=== PATIENT | female | born 1935 | race Caucasian/White ===

== ENCOUNTER 2016-11-02 11:36 | Emergency (ER) | payer MEDICARE, OTHER ==
[~2016-11-02 11:36] MED LIST: CAPT50TA3 PO; CHOL50009 PO; DEXT1DRO6 BOTH EYES; DOCU-144 PO; DOXE25CA43 PO; DULO60CA6 PO; FAMO20TA18 PO; HYDR-762 PO; IBUP200C11 PO; INSU100V14 SC; LANT3I SC; LAS20 PO; LIDO700A6 TD; LYR75 PO; METF500T PO; METH500T PO; MULT-860 PO; MUPI15CR9 TOP; POTA10TA97 PO; SMV40T PO; TRAM50TA2 PO; ZOLP5TAB PO; [UNRECOGNIZED DRUG - CODE] TOP
[2016-11-02] MEDS ORDERED: SOD CHLORIDE 0.9% 1,000 ML IV STA (11:48)
[2016-11-02] MEDS ORDERED: ONDANSETRON 4 MG INJ IV STA (11:48)
[2016-11-02] MEDS ORDERED: morphine 2 MG INJ IV STA (11:48)
[2016-11-02] MEDS ORDERED: HYDR-902 PO (12:41)
[2016-11-02] MEDS ORDERED: ZOLP10TA PO (12:42)
[2016-11-02] MEDS ORDERED: LANT3I SC (12:42)
[2016-11-02 12:43] LABS: ADD SCAN DIFF NO
[2016-11-02] MEDS ORDERED: NUT.237L21 PO (12:43)
[2016-11-02] MEDS ORDERED: GABA100C14 PO (12:44)
[2016-11-02] MEDS ORDERED: POTA10TA37 PO (12:45)
[2016-11-02] MEDS ORDERED: DICL100G37 TOP (12:45)
[2016-11-02] MEDS ORDERED: CRAN500C5 PO (12:46)
[2016-11-02] MEDS ORDERED: CHOL100062 PO (12:46)
[2016-11-02] MEDS ORDERED: IBUP400T22 PO (12:47)
[2016-11-02] MEDS ORDERED: DESO15CR9 TOP (12:48)
[2016-11-02] MEDS ORDERED: CELE200C PO (12:49)
[2016-11-02] MEDS ORDERED: ALBU8.5H3 INH (12:49)
[2016-11-02 12:50] LABS: BASOPHILS % 0.3 % (0.0-2.0); EOSINOPHILS # 0.1 10^3/ul (0.0-0.5); HEMATOCRIT 45.8 % (37.0-47.0); HEMOGLOBIN 14.8 g/dl (12.0-16.0); LYMPHOCYTES # 1.9 10^3/ul (0.8-2.9); LYMPHOCYTES % 15.2 % (15.0-51.0); MEAN CORPUSCULAR HEMOGLOBIN 31.8 pg (29.0-33.0); MEAN CORPUSCULAR HGB CONC 32.3 g/dl (32.0-37.0); MEAN CORPUSCULAR VOLUME 98.3 fl (82.0-101.0); MEAN PLATELET VOLUME 12.7 fl (7.4-10.4); MONOCYTE # 1.1 10^3/ul (0.3-0.9); NEUTROPHIL # 9.2 10^3/ul (1.6-7.5); NEUTROPHILS % 73.9 % (39.0-77.0); PLATELET COUNT 204 10^3/UL (140-415); RED BLOOD COUNT 4.66 10^6/ul (4.20-5.40); RED CELL DISTRIBUTION WIDTH 12.9 % (11.5-14.5); WHITE BLOOD COUNT 12.4 10^3/ul (4.8-10.8)
[2016-11-02] MEDS ORDERED: BENA5TAB2 PO (12:50)
[2016-11-02] MEDS ORDERED: BISA10SU16 RC (12:51)
--- NOTE | 2016-11-02 12:53 | RADRPT ---
PROCEDURE: CT Abdomen and Pelvis without contrast. CLINICAL INDICATION: Ventral hernia. TECHNIQUE: Routine abdominopelvic CT was performed without intravenous contrast and reformatted in the axial, coronal, sagittal planes. Radiation dose: CTDIvol (mGy) = 23.3; total DLP mGy-cm = 1317. One or more of the following radiation dose techniques were used: -Automated exposure control. -Adjust of the mA and/or kV according to patient size. -Use of iterative reconstruction technique. COMPARISON: None. FINDINGS: Diastases of the rectus abdominis musculature with a small fat-containing umbilical hernia. There i s also an additional defect identified in the upper right anterior abdominal wall with herniation of fat, consistent with a small fat-containing ventral hernia. There is surgical absence of the gallbladder without significant biliary dilatation. Unenhanced leslie ges of the pancreas, right adrenal gland, and spleen demonstrate no significant abnormality. There is heterogeneous thickening of the left adrenal gland with a 14 mm hyperdense nodule. Incompletely characterized exophytic lesions in the bilateral kidneys. No hydronephrosis or nephrol ithiasis. Mild colonic diverticulosis without diverticulitis. Small bowel loops are normal in caliber and mur al thickness. The uterus is surgically absent. No adnexal cyst or mass. No free fluid or fluid collection. At least moderate atherosclerotic aortic calcifications without aneurysm. IMPRESSION: Diastases of the rectus abdominal musculature with a small fat-containing ventral hernia identified in the right upper quadrant. There is an additional tiny fat containing umbilical hernia. Nonspecific heterogeneous left adrenal nodule/thickening. Consider follow-up CT in 6-12 months to e nsure stability. RPTAT: EE .Sohan Hare MD, MD Date Time Electronically viewed and signed by .Sohna Hare MD, MD on 11/02/2016 12:58 .C/
[2016-11-02 12:55] VITALS: BP 137/89; PULSE 69; RESP 18
[2016-11-02 13:08] LABS: ALBUMIN/GLOBULIN RATIO 1.02; BILIRUBIN,INDIRECT 0.7 mg/dl (0-1.1); BILIRUBIN,TOTAL 0.7 mg/dl (0.2-1.3); CALCIUM 9.1 mg/dl (8.4-10.2); CREATININE 0.68 mg/dl (0.44-1.00); POTASSIUM 4.6 mmol/L (3.5-5.1); TOTAL PROTEIN 7.9 g/dl (6.1-8.1)
[2016-11-02 13:55] LABS: ADD UMIC YES; URINE BILIRUBIN (Dip) NEGATIVE (NEGATIVE); URINE BLOOD (Dip) 3+ (NEGATIVE); URINE COLOR YELLOW (YELLOW); URINE GLUCOSE (Dip) NEGATIVE (NEGATIVE); URINE KETONES (Dip) NEGATIVE (NEGATIVE); URINE LEUKOCYTE ESTERASE (Dip) 1+ (NEGATIVE); URINE NITRITE (Dip) POSITIVE (NEGATIVE); URINE TOTAL PROTEIN (Dip) 2+ (NEGATIVE); URINE UROBILINOGEN (Dip) 1.0 E.U./dL (0.1-1.0)
[2016-11-02] MEDS ORDERED: DICLOFENAC SODIUM 37.5 MG/ML VIAL IV STA (14:02)
[2016-11-02] MEDS ORDERED: NITR-58 PO (14:07)
[2016-11-02] MEDS ORDERED: CIPR500T4 PO (14:07)
[2016-11-02] MEDS ORDERED: ACET-141 PO (14:09)
[2016-11-02] MEDS ORDERED: HYDR-906 PO (14:21)
[2016-11-02] MEDS ORDERED: CEFTRIAXONE 1 GM/50 ML (PMX) 50 ML IVPB ONE (14:30)
[2016-11-02 14:40] LABS: BACTERIA,URINE MANY
[2016-11-02 14:42] LABS: URINE RBCS 25-50 /HPF (0)
--- NOTE | 2016-11-02 17:00 | ERD ---
ER Documentation Chief Complaint Date/Time DATE: 11/02/16 TIME: 16:57 Chief Complaint Abdominal pain. HPI Mid abdominal pain after ground-level fall approximately 2 feet. Patient usually rides a scooter to get around. She has a ventral hernia that she says is causing her some pain. She has never had strangulation or incarceration of the hernia. It is still reducible. She has had some urinary frequency as well. Did not hit her head lose consciousness or have pain in any other part of her body. ROS All systems reviewed and are negative except as per history of present illness. Medications Home Meds Active Scripts Hydrocodone/Acetaminophen ([place] 5-325 Tablet) 1 Each Tablet, 1 EACH PO Q6 for SEVERE PAIN LEVEL 7-10, #8 TAB Prov:KENNYOSBALDO DO 11/02/16 Acetaminophen* (Acetaminophen*) 500 MG Extra Strength Tablet, 500 MG PO Q6H Y for PAIN AND OR ELEVATED TEMP, #18 TAB Prov:KENNYOSBALDO DO 11/02/16 Nitrofurantoin Monohyd Macrocr* (Macrobid*) 100 Mg Capsr, 100 MG PO BID for 5 Days, CAP Prov:KENNYOSBALDO DO 11/02/16 Ciprofloxacin Hcl* (Ciprofloxacin Hcl*) 500 Mg Tablet, 500 MG PO BID for 5 Days , TAB Prov:KENNYOSBALDO DO 11/02/16 Methocarbamol* (Robaxin*) 500 Mg Tab, 500 MG PO Q8, #14 TAB Prov:MADDI GOEL DO 10/05/15 Tramadol HCl (Tramadol HCl) 50 Mg Tablet, 50 MG PO Q6, #20 TAB Prov:MADDI GOEL DO 10/05/15 Reported Medications Bisacodyl (Biscolax) 10 Mg Supp.rect, 10 MG RC EVERY 3 DAYS Y for CONSTIPATION, SUPP.RECT 11/02/16 Benazepril Hcl* (Benazepril Hcl*) 5 Mg Tablet, 5 MG PO DAILY, #30 TAB 11/02/16 Celecoxib* (Celebrex*) 200 Mg Capsule, 200 MG PO DAILY, CAP 11/02/16 Albuterol Sulfate* (Proair HFA*) 8.5 Gm Hfa.aer.ad, 1-2 PUFF INH Q4 Y for WHEEZING AND SOB, #1 INHALER 11/02/16 Desoximetasone* (Desoximetasone*) 0.25%-15GM Cream..g., 1 APPLIC TOP BID, #1 EA 11/02/16 Ibuprofen* (Motrin*) 400 Mg Tab, 400 MG PO Q6H Y for PAIN, TAB ONLY FOR 4 DAYS 11/02/16 Cholecalciferol* (Vitamin D3*) 1,000 Unit Tablet, 2000 UNIT PO DAILY, TAB 11/02/16 Cranberry Extract (Cranberry) 500 Mg Capsule, 500 MG PO DAILY, CAP 11/02/16 Diclofenac Sodium* (Voltaren* Gel) 1% -100 Gm Gel, 2 GM TOP QID, #1 TUB 11/02/16 Potassium Chloride* (K-Dur*) 10 Meq Tab.prt.sr, 10 MEQ PO DAILY, TAB 11/02/16 Gabapentin* (Gabapentin*) 100 Mg Capsule, 100 MG PO QHS, #90 CAP 11/02/16 Nut.tx.gluc.intoler,Lac-Fr,Soy (Glucerna 1 Beny) 237 Ml Liquid, 237 ML PO BID 11/02/16 Zolpidem Tartrate* (Ambien*) 10 Mg Tablet, 10 MG PO QHS Y for INSOMNIA, TAB 11/02/16 Insulin Glargine* (Lantus*) 100 Unit/Ml Soln, 65 UNIT SC QHS, #1 VIAL 11/02/16 Hydrocodone/Acetaminophen ([place] 10-325 Tablet) 1 Each Tablet, 1 EACH PO Q6 Y for PAIN, TAB 11/02/16 Mu-Vits-Min Th/Lycopene/Lutein (CENTRUM SILVER TABLET) 1 Each Tablet, 1 EACH PO DAILY 09/03/14 Furosemide (Lasix) 20 Mg Tab, 20 MG PO DAILY, TAB 09/03/14 Mupirocin Calcium* (Mupirocin*) 2% - 15 Gram Cream..g., 1 APPLIC TOP DAILY, TUB APPLY TO BLE DAILY 09/03/14 Famotidine* (Famotidine*) 20 Mg Tablet, 20 MG PO AM, TAB 09/03/14 Duloxetine Hcl* (Cymbalta*) 60 Mg Capsule.dr, 60 MG PO AM, CAP 09/03/14 Pregabalin* (Lyrica*) 75 Mg Capsule, 75 MG PO BID, CAP 09/03/14 Simvastatin (Simvastatin) 40 Mg Tablet, 40 MG PO HS, TAB 09/03/14 Captopril* (Captopril*) 50 Mg Tablet, 50 MG PO BID, TAB 09/03/14 Discontinued Reported Medications Halobetasol Propionate* (Ultravate* Oint) 0.05% - 50 Gm Oint..gm., 1 APPLIC TOP BID, TUB APPLY TO AFFECTED AREA TWICE DAILY. 09/03/14 Insulin Glargine* (Lantus*) 100 Unit/Ml Soln, 50 UNIT SC HS, EA 09/03/14 Insulin Glargine* (Lantus*) 100 Unit/Ml Soln, 25 UNIT SC AM, EA INJECT 25 UNITS SUB-Q ON WAKING HOURS BUT NOT LATER THAN 1000 AM. 09/03/14 Lidocaine 5%* (Lidoderm 5%*) 5% - Patch Adh..patch, 1 PATCH TD DAILY, PATCH APPLY PATCH TO LOWER BACK 12 HOURS ON AND 12 HOURS OFF. 09/03/14 Zolpidem Tartrate* (Ambien*) 5 Mg Tablet, 5 MG PO HS Y for INSOMNIA, TAB 09/03/14 Ibuprofen* (Advil*) 200 Mg Capsule, 200 MG PO Q6H Y for PAIN, CAP 09/03/14 Potassium Chloride (Klor-Con) 10 Meq Tablet.sa, 10 MEQ PO EVERY OTHER DAY, TAB.SA 09/03/14 Docusate Sodium* (Colace*) 100 Mg Capsule, 100 MG PO DAILY for CONSTIPATION, #2 CAP 09/03/14 Metformin Hcl (Glucophage) 500 Mg Tablet, 500 MG PO BID WITH MEALS, TAB 09/03/14 Cholecalciferol* (Vitamin D*) 5,000 Unit Tablet, 5000 UNIT PO DAILY, TAB 09/03/14 Dextran 70/Hypromellose (Artificial Tears) 1 Drp Droperette, 1 DRP BOTH EYES DAILY 09/03/14 Insulin Regular, Human (Humulin R) 100 Units/Ml Vial, 0 SC SLIDING SCALE AC, VIAL 09/03/14 Doxepin Hcl* (Doxepin Hcl*) 25 Mg Capsule, 25 MG PO HS, CAP 09/03/14 Hydrocodone Bit-Acetaminophen* ([place]*) 10-325 Mg Tablet, 1 TAB PO Q4H Y for PAIN, TAB 09/03/14 Allergies Allergies: Coded Allergies: No Known Allergy (Unverified , 11/02/16) PMhx/Soc History of Surgery: No Anesthesia Reaction: No Hx Neurological Disorder: No Hx Respiratory Disorders: No Hx Cardiac Disorders: Yes (HTN) Hx Psychiatric Problems: No Hx Miscellaneous Medical Probl: Yes (DM) Hx Alcohol Use: No Hx Substance Use: No Hx Tobacco Use: No Smoking Status: Never smoker Physical Exam Vitals Vital Signs Date Time Temp Pulse Resp B/P Pulse Ox O2 Delivery O2 Flow Rate FiO2 11/02/16 12:55 69 18 137/89 94 Room Air Physical Exam Const: [] No distress, talkative and smiling, morbidly obese Head: Atraumatic Eyes: Normal Conjunctiva ENT: Normal External Ears, Nose and Mouth. Neck: Full range of motion..~ No meningismus. Resp: Clear to auscultation bilaterally Cardio: Regular rate and rhythm, no murmurs Abd: Soft, very mild mid abdominal tenderness above the umbilicus without guarding or rebound, patient continues to push on the abdomen herself while I am palpating, no specific hernia palpable through the extensive layer of adipose tissue, no erythema or masses palpable., non distended. Normal bowel sounds Skin: No petechiae or rashes Back: No midline or flank tenderness Ext: No cyanosis, or edema Neur: Awake and alert and oriented 3, no focal deficits Psych: Normal Mood and Affect Result Diagram: 11/02/16 1215 11/02/16 1215 Results 24 hrs Laboratory Tests Test 11/02/16 12:15 11/02/16 13:00 White Blood Count 12.410^3/ul Red Blood Count 4.6610^6/ul Hemoglobin 14.8g/dl Hematocrit 45.8% Mean Corpuscular Volume 98.3fl Mean Corpuscular Hemoglobin 31.8pg Mean Corpuscular Hemoglobin Concent 32.3g/dl Red Cell Distribution Width 12.9% Platelet Count 01531^3/UL Mean Platelet Volume 12.7fl Neutrophils % 73.9% Lymphocytes % 15.2% Monocytes % 9.0% Eosinophils % 1.0% Basophils % 0.3% Nucleated Red Blood Cells % 0.0/100WBC Neutrophils # 9.210^3/ul Lymphocytes # 1.910^3/ul Monocytes # 1.110^3/ul Eosinophils # 0.110^3/ul Basophils # 0.010^3/ul Nucleated Red Blood Cells # 0.010^3/ul Sodium Level 141mmol/L Potassium Level 4.6mmol/L Chloride Level 99mmol/L Carbon Dioxide Level 30mmol/L Anion Gap 17 Blood Urea Nitrogen 19mg/dl Creatinine 0.68mg/dl Glucose Level 198mg/dl Lactic Acid Level 2.3mmol/L Calcium Level 9.1mg/dl Total Bilirubin 0.7mg/dl Direct Bilirubin 0.00mg/dl Indirect Bilirubin 0.7mg/dl Aspartate Amino Transf (AST/SGOT) 25IU/L Alanine Aminotransferase (ALT/SGPT) 29IU/L Alkaline Phosphatase 59IU/L Total Protein 7.9g/dl Albumin 4.0g/dl Globulin 3.90g/dl Albumin/Globulin Ratio 1.02 Lipase 31U/L Urine Color YELLOW Urine Clarity CLEAR Urine pH 6.0 Urine Specific [place] >=1.030 Urine Ketones NEGATIVE Urine Nitrite POSITIVE Urine Bilirubin NEGATIVE Urine Urobilinogen 1.0 E.U./dL Urine Leukocyte Esterase 1+ Urine Microscopic RBC 25-50/HPF Urine Microscopic WBC >50/HPF Urine Epithelial Cells RARE Urine Bacteria MANY Urine Hemoglobin 3+ Urine Glucose NEGATIVE% Urine Total Protein 2+ Current Medications Medications (Trade) Dose Ordered Sig/Debbie Route PRN Reason Start Time Stop Time Status Last Admin Dose Admin Sodium Chloride (NS) 1,000 ml @ 1,000 mls/hr Q1H STAT IV 11/02/16 11:48 11/02/16 12:47 DC 11/02/16 12:13 Morphine Sulfate (morphine) 2 mg ONCE STAT IV 11/02/16 11:48 11/02/16 11:50 DC 11/02/16 12:12 Ondansetron HCl 4 mg 4 mg ONCE STAT IV 11/02/16 11:48 11/02/16 11:50 DC 11/02/16 12:12 Ceftriaxone Sodium (Rocephin) 50 ml @ 100 mls/hr ONCE ONCE IVPB 11/02/16 14:30 11/02/16 14:59 DC 11/02/16 14:29 Diclofenac Sodium (Dyloject) 37.5 mg ONCE STAT IV 11/02/16 14:02 11/02/16 14:03 DC 11/02/16 14:29 Procedures/MDM Urinary tract infection and 81-year-old female. She has no fevers chills or altered mental status. Also fell and has pain in her ventral hernia is containing fat and no bowel. No signs of trauma. No signs of serious infection. Very mild white count with no signs of sepsis and vital signs. Patient was given a liter of fluid as well as a gram of Rocephin in the emergency room. She was given 4 mg of morphine which decreased the pain dramatically. Going to discharge her with Cipro, Macrobid, Tylenol for mild pain and [place] for severe pain. Primary care follow-up and instructions to see a general surgeon to address the hernia if it continues to bother her. Return precautions given. CT abdomen pelvis interpretation: Ventral hernia containing fat, no obstruction , no free air, no abnormal fat stranding, no fractures. Departure Diagnosis: Primary Impression: Abdominal pain Additional Impression: UTI (urinary tract infection) Condition: Stable Patient Instructions: Abdominal Pain, Understanding Urinary Tract Infections ( UTIs), Hernia Repair Surgery Additional Instructions: Call your primary care doctor TOMORROW for an appointment during the next 1-2 days. Obtain a referral to a GENERAL SURGEON to address your ventral hernia if it continues to bother you. See the doctor sooner or return here if your condition worsens before your appointment time. OSBALDO COX DO November 02, 2016 17:00
== END 2016-11-02 15:33 | disposition home or self-care (01) ==
LOC: E/R 11:36
DX: R10.9 Unspecified abdominal pain (principal); N39.0 Urinary tract infection, site not specified; I10 Essential (primary) hypertension; E11.9 Type 2 diabetes mellitus without complications; Z79.4 Long term (current) use of insulin; Z79.84 Long term (current) use of oral hypoglycemic drugs
CPT/HCPCS: 36415; 74176; 80053; 81001; 83605; 83690; 85025; 96374; 96375; 99285; A4310; J0696; J2270; J2405; J7030; P9612

== ENCOUNTER 2017-01-07 12:40 | Emergency (ER) | payer MEDICARE, OTHER ==
[~2017-01-07] VITALS: Ht 165.1 cm; Wt 100.0 kg
[~2017-01-07 12:40] MED LIST changes: +ACET-141 PO; +ALBU8.5H3 INH; +BENA5TAB2 PO; +BISA10SU16 RC; +CELE200C PO; +CHOL100062 PO; -CHOL50009 PO; +CIPR500T4 PO; +CRAN500C5 PO; +DESO15CR9 TOP; -DEXT1DRO6 BOTH EYES; +DICL100G37 TOP; -DOCU-144 PO; -DOXE25CA43 PO; +GABA100C14 PO; -HYDR-762 PO; +HYDR-902 PO; +HYDR-906 PO; -IBUP200C11 PO; +IBUP400T22 PO; -INSU100V14 SC; -LIDO700A6 TD; -METF500T PO; +NITR-58 PO; +NUT.237L21 PO; +POTA10TA37 PO; -POTA10TA97 PO; +SIMV40TA3 PO; -SMV40T PO; +ZOLP10TA PO; -ZOLP5TAB PO; -[UNRECOGNIZED DRUG - CODE] TOP
[2017-01-07 12:44] VITALS: Ht 165.1 cm; Wt 100.0 kg
[2017-01-07] MEDS ORDERED: IBUPROFEN 800 MG TAB PO ONE (14:00)
--- NOTE | 2017-01-07 15:31 | RADRPT ---
PROCEDURE: Left hip radiographs. CLINICAL INDICATION: Pain. TECHNIQUE: Portable supine AP and lateral views. COMPARISON: Radiograph 10/05/2015. FINDINGS: Overlying soft tissue passed limits evaluation of the joint space. Within these limitations, mild j oint space narrowing with bony remodelling along the inferior femoral head and acetabular sclerosis. No displaced fracture identified. Alignment is anatomic. IMPRESSION: No acute fracture or subluxation. Cristofer Hull Physician Date Time Electronically viewed and signed by Cristofer Hull Physician on 01/07/2017 15:31 LG/
--- NOTE | 2017-01-07 15:40 | RADRPT ---
PROCEDURE: X-RAY LEFT KNEE CLINICAL INDICATION: Hip pain. TECHNIQUE: Three views of the left knee are available for review. COMPARISON: None available FINDINGS: There is marked medial joint space narrowing and there are osteophytes indicative of moderately adva nced arthrosis. Moderate changes of the lateral compartment are present and there is lateral menisc us chondrocalcinosis. There is moderate patellofemoral arthrosis and a moderate joint effusion. Th e bones are osteopenic. No acute fractures seen. IMPRESSION: 1. 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 2. Osteopenia. No acute fractures seen. 3. Moderate joint effusion. 4. Chondrocalcinosis. RPTAT: XX .Tiburcio Gomez MD, Date Time Electronically viewed and signed by .Tiburcio Gomez MD, on 01/07/2017 15:40 .T/
[2017-01-07 15:47] VITALS: BP 129/101; PULSE 75; RESP 19
--- NOTE | 2017-01-07 15:50 | ERD ---
ER Documentation Chief Complaint Date/Time DATE: 01/07/17 TIME: 15:48 Chief Complaint LEFT LEG PAIN POSSIBLE FALL YESTERDAY HPI This is an 81-year-old female who is wheelchair-bound who presents to the emergency room for evaluation of left leg pain. The patient states she was in a wheelchair and she slid off yesterday. She states she is having pain in her left knee. She states that she came to the ER for evaluation and is denying any head injury or loss of consciousness. The patient describes her pain as an achy pain worse with movement of the left knee. She is ambulating on the knee but states she is walking with a limp. ROS All systems reviewed and are negative except as per history of present illness. Medications Home Meds Active Scripts Hydrocodone/Acetaminophen ([place] 5-325 Tablet) 1 Each Tablet, 1 EACH PO Q6 for SEVERE PAIN LEVEL 7-10, #8 TAB Prov:OSBALDO COX DO 11/02/16 Acetaminophen* (Acetaminophen*) 500 MG Extra Strength Tablet, 500 MG PO Q6H Y for PAIN AND OR ELEVATED TEMP, #18 TAB Prov:OSBALDO COX DO 11/02/16 Methocarbamol* (Robaxin*) 500 Mg Tab, 500 MG PO Q8, #14 TAB Prov:MADDI GOEL DO 10/05/15 Tramadol HCl (Tramadol HCl) 50 Mg Tablet, 50 MG PO Q6, #20 TAB Prov:MADDI GOEL DO 10/05/15 Reported Medications Bisacodyl (Biscolax) 10 Mg Supp.rect, 10 MG RC EVERY 3 DAYS Y for CONSTIPATION, SUPP.RECT 11/02/16 Benazepril Hcl* (Benazepril Hcl*) 5 Mg Tablet, 5 MG PO DAILY, #30 TAB 11/02/16 Celecoxib* (Celebrex*) 200 Mg Capsule, 200 MG PO DAILY, CAP 11/02/16 Albuterol Sulfate* (Proair HFA*) 8.5 Gm Hfa.aer.ad, 1-2 PUFF INH Q4 Y for WHEEZING AND SOB, #1 INHALER 11/02/16 Desoximetasone* (Desoximetasone*) 0.25%-15GM Cream..g., 1 APPLIC TOP BID, #1 EA 11/02/16 Ibuprofen* (Motrin*) 400 Mg Tab, 400 MG PO Q6H Y for PAIN, TAB ONLY FOR 4 DAYS 11/02/16 Cholecalciferol* (Vitamin D3*) 1,000 Unit Tablet, 2000 UNIT PO DAILY, TAB 11/02/16 Cranberry Extract (Cranberry) 500 Mg Capsule, 500 MG PO DAILY, CAP 11/02/16 Diclofenac Sodium* (Voltaren* Gel) 1% -100 Gm Gel, 2 GM TOP QID, #1 TUB 11/02/16 Potassium Chloride* (K-Dur*) 10 Meq Tab.prt.sr, 10 MEQ PO DAILY, TAB 11/02/16 Gabapentin* (Gabapentin*) 100 Mg Capsule, 100 MG PO QHS, #90 CAP 11/02/16 Nut.tx.gluc.intoler,Lac-Fr,Soy (Glucerna 1 Beny) 237 Ml Liquid, 237 ML PO BID 11/02/16 Zolpidem Tartrate* (Ambien*) 10 Mg Tablet, 10 MG PO QHS Y for INSOMNIA, TAB 11/02/16 Insulin Glargine* (Lantus*) 100 Unit/Ml Soln, 65 UNIT SC QHS, #1 VIAL 11/02/16 Mu-Vits-Min Th/Lycopene/Lutein (CENTRUM SILVER TABLET) 1 Each Tablet, 1 EACH PO DAILY 09/03/14 Furosemide (Lasix) 20 Mg Tab, 20 MG PO DAILY, TAB 09/03/14 Mupirocin Calcium* (Mupirocin*) 2% - 15 Gram Cream..g., 1 APPLIC TOP DAILY, TUB APPLY TO BLE DAILY 09/03/14 Famotidine* (Famotidine*) 20 Mg Tablet, 20 MG PO AM, TAB 09/03/14 Duloxetine Hcl* (Cymbalta*) 60 Mg Capsule.dr, 60 MG PO AM, CAP 09/03/14 Pregabalin* (Lyrica*) 75 Mg Capsule, 75 MG PO BID, CAP 09/03/14 Simvastatin (Simvastatin) 40 Mg Tablet, 40 MG PO HS, TAB 09/03/14 Captopril* (Captopril*) 50 Mg Tablet, 50 MG PO BID, TAB 09/03/14 Discontinued Reported Medications Hydrocodone/Acetaminophen ([place] 10-325 Tablet) 1 Each Tablet, 1 EACH PO Q6 Y for PAIN, TAB 11/02/16 Discontinued Scripts Nitrofurantoin Monohyd Macrocr* (Macrobid*) 100 Mg Capsr, 100 MG PO BID for 5 Days, CAP Prov:OSBALDO COX DO 11/02/16 Ciprofloxacin Hcl* (Ciprofloxacin Hcl*) 500 Mg Tablet, 500 MG PO BID for 5 Days , TAB Prov:OSBALDO COX DO 11/02/16 Allergies Allergies: Coded Allergies: No Known Allergy (Unverified , 11/02/16) PMhx/Soc Medical and Surgical Hx: Unable to obtain History of Surgery: No Anesthesia Reaction: No Hx Neurological Disorder: No Hx Respiratory Disorders: No Hx Cardiac Disorders: Yes (HTN) Hx Psychiatric Problems: No Hx Miscellaneous Medical Probl: Yes (DM) Hx Alcohol Use: No Hx Substance Use: No Hx Tobacco Use: No Smoking Status: Never smoker Physical Exam Vitals Vital Signs Date Time Temp Pulse Resp B/P Pulse Ox O2 Delivery O2 Flow Rate FiO2 01/07/17 12:44 97.8 72 20 130/82 98 Physical Exam Const: No acute distress Head: Atraumatic Eyes: Normal Conjunctiva ENT: Normal External Ears, Nose and Mouth. Neck: Full range of motion..~ No meningismus. Resp: Clear to auscultation bilaterally Cardio: Regular rate and rhythm, no murmurs Abd: Soft, non tender, non distended. Normal bowel sounds Skin: No petechiae or rashes Back: No midline or flank tenderness Ext: No cyanosis, or edema Neur: Awake and alert Psych: Normal Mood and Affect Results 24 hrs Current Medications Medications (Trade) Dose Ordered Sig/Debbie Route PRN Reason Start Time Stop Time Status Last Admin Dose Admin Ibuprofen (Motrin) 800 mg ONCE ONCE PO 01/07/17 14:00 01/07/17 14:01 DC 01/07/17 15:08 Procedures/MDM X-ray Hip 2V Interpreted by me: Bones: No fracture Joints: No dislocation Foreign body: None X-ray Knee 3V Interpreted by me: Bones: No fracture Joints: No dislocation Foreign body: None This 81-year-old presents to the ER for evaluation of a ground-level fall. The patient was complaining of pain in her left knee. I did obtain x-rays of the left knee and left hip. X-rays are within normal limits. The patient was given Motrin in the emergency room and does say she is feeling better. She will be discharged home at this time with a prescription for Motrin. Departure Diagnosis: Primary Impression: Contusion of left knee Additional Impression: Contusion of left hip Condition: Stable MARIIA CARY DO Jan 07, 2017 15:50
[2017-01-07] MEDS ORDERED: IBUP-1542 PO (15:51)
[2017-01-08] MEDS ORDERED: TRAM50TA2 PO (17:02)
[2017-01-08] MEDS ORDERED: CEPH-443 PO (17:02)
== END 2017-01-07 16:56 | disposition home or self-care (01) ==
LOC: E/R 12:40
DX: S80.02XA Contusion of left knee, initial encounter (principal); S70.02XA Contusion of left hip, initial encounter; I10 Essential (primary) hypertension; E11.9 Type 2 diabetes mellitus without complications; W18.39XA Other fall on same level, initial encounter; Y92.9 Unspecified place or not applicable; Z79.4 Long term (current) use of insulin
CPT/HCPCS: 73510; 73562

== ENCOUNTER 2017-01-08 10:34 | Emergency (ER) | payer MEDICARE, OTHER ==
[~2017-01-08] VITALS: Ht 165.1 cm; Wt 100.0 kg
[~2017-01-08 10:34] MED LIST changes: -CIPR500T4 PO; -HYDR-902 PO; +IBUP-1542 PO; -NITR-58 PO
[2017-01-08 10:35] VITALS: Ht 165.1 cm; Wt 100.0 kg
--- NOTE | 2017-01-08 12:16 | ERD ---
ER Documentation Chief Complaint Date/Time DATE: 01/08/17 TIME: 12:11 Chief Complaint HPI Patient is an 81-year-old female sent to the hospital by ambulance for 4 falls in the last 48 hours. The patient lives in independent living and has q. 2 hour assistance. She believes that she had 2 falls in the last week, and states that her fall was 1 week ago with injury to her left knee. She denies hitting her head or neck. She denies injury to her back or pelvis or other extremities. States that the fall occurred during transfer from her bed to her wheelchair. She is nonambulatory at baseline. Per report from the facility, patient is appeared to have weakness in the left leg for the last 48 hours. There is no report of increased confusion, fever, facial droop, difficulty speaking, or other extremity weakness. The patient reports nausea, denies chest pain or shortness of breath. ROS All systems reviewed and are negative except as per history of present illness. Medications Home Meds Active Scripts Tramadol HCl (Tramadol HCl) 50 Mg Tablet, 50 MG PO Q6 Y for PAIN, #20 TAB Prov:DONALD WILLETT MD 01/08/17 Cephalexin* (Keflex*) 500 Mg Capsule, 500 MG PO QID for 7 Days, CAP Prov:DONALD WILLETT MD 01/08/17 Ibuprofen* (Motrin*) 600 Mg Tab, 600 MG PO Q8, #21 TAB Prov:MARIIA CARY DO 01/07/17 Hydrocodone/Acetaminophen ([place] 5-325 Tablet) 1 Each Tablet, 1 EACH PO Q6 for SEVERE PAIN LEVEL 7-10, #8 TAB Prov:OSBALDO COX DO 11/02/16 Acetaminophen* (Acetaminophen*) 500 MG Extra Strength Tablet, 500 MG PO Q6H Y for PAIN AND OR ELEVATED TEMP, #18 TAB Prov:OSBALDO COX DO 11/02/16 Methocarbamol* (Robaxin*) 500 Mg Tab, 500 MG PO Q8, #14 TAB Prov:MADDI GOEL DO 10/05/15 Tramadol HCl (Tramadol HCl) 50 Mg Tablet, 50 MG PO Q6, #20 TAB Prov:MADDI GOEL DO 10/05/15 Reported Medications Bisacodyl (Biscolax) 10 Mg Supp.rect, 10 MG RC EVERY 3 DAYS Y for CONSTIPATION, SUPP.RECT 11/02/16 Benazepril Hcl* (Benazepril Hcl*) 5 Mg Tablet, 5 MG PO DAILY, #30 TAB 11/02/16 Celecoxib* (Celebrex*) 200 Mg Capsule, 200 MG PO DAILY, CAP 11/02/16 Albuterol Sulfate* (Proair HFA*) 8.5 Gm Hfa.aer.ad, 1-2 PUFF INH Q4 Y for WHEEZING AND SOB, #1 INHALER 11/02/16 Desoximetasone* (Desoximetasone*) 0.25%-15GM Cream..g., 1 APPLIC TOP BID, #1 EA 11/02/16 Ibuprofen* (Motrin*) 400 Mg Tab, 400 MG PO Q6H Y for PAIN, TAB ONLY FOR 4 DAYS 11/02/16 Cholecalciferol* (Vitamin D3*) 1,000 Unit Tablet, 2000 UNIT PO DAILY, TAB 11/02/16 Cranberry Extract (Cranberry) 500 Mg Capsule, 500 MG PO DAILY, CAP 11/02/16 Diclofenac Sodium* (Voltaren* Gel) 1% -100 Gm Gel, 2 GM TOP QID, #1 TUB 11/02/16 Potassium Chloride* (K-Dur*) 10 Meq Tab.prt.sr, 10 MEQ PO DAILY, TAB 11/02/16 Gabapentin* (Gabapentin*) 100 Mg Capsule, 100 MG PO QHS, #90 CAP 11/02/16 Nut.tx.gluc.intoler,Lac-Fr,Soy (Glucerna 1 Beny) 237 Ml Liquid, 237 ML PO BID 11/02/16 Zolpidem Tartrate* (Ambien*) 10 Mg Tablet, 10 MG PO QHS Y for INSOMNIA, TAB 11/02/16 Insulin Glargine* (Lantus*) 100 Unit/Ml Soln, 65 UNIT SC QHS, #1 VIAL 11/02/16 Mu-Vits-Min Th/Lycopene/Lutein (CENTRUM SILVER TABLET) 1 Each Tablet, 1 EACH PO DAILY 09/03/14 Furosemide (Lasix) 20 Mg Tab, 20 MG PO DAILY, TAB 09/03/14 Mupirocin Calcium* (Mupirocin*) 2% - 15 Gram Cream..g., 1 APPLIC TOP DAILY, TUB APPLY TO BLE DAILY 3/29/15 Famotidine* (Famotidine*) 20 Mg Tablet, 20 MG PO AM, TAB 09/03/14 Duloxetine Hcl* (Cymbalta*) 60 Mg Capsule.dr, 60 MG PO AM, CAP 09/03/14 Pregabalin* (Lyrica*) 75 Mg Capsule, 75 MG PO BID, CAP 09/03/14 Simvastatin (Simvastatin) 40 Mg Tablet, 40 MG PO HS, TAB 09/03/14 Captopril* (Captopril*) 50 Mg Tablet, 50 MG PO BID, TAB 09/03/14 Discontinued Reported Medications Hydrocodone/Acetaminophen ([place] 10-325 Tablet) 1 Each Tablet, 1 EACH PO Q6 Y for PAIN, TAB 11/02/16 Discontinued Scripts Nitrofurantoin Monohyd Macrocr* (Macrobid*) 100 Mg Capsr, 100 MG PO BID for 5 Days, CAP Prov:KENNYRONALDOSBALDO DO 11/02/16 Ciprofloxacin Hcl* (Ciprofloxacin Hcl*) 500 Mg Tablet, 500 MG PO BID for 5 Days , TAB Prov:KENNYOSBALDO DO 11/02/16 Allergies Allergies: Coded Allergies: No Known Allergy (Unverified , 11/02/16) PMhx/Soc Past medical history: Diabetes mellitus, hypertension Past surgical history: Left breast, other history unknown Social history: Lives in assisted living facility. Denies tobacco or alcohol. Has daughter in [place]. History of Surgery: No Anesthesia Reaction: No Hx Neurological Disorder: No Hx Respiratory Disorders: No Hx Cardiac Disorders: Yes (HTN) Hx Psychiatric Problems: No Hx Miscellaneous Medical Probl: Yes (DM) Hx Alcohol Use: No Hx Substance Use: No Hx Tobacco Use: No FmHx Family History: No coronary disease, No diabetes Physical Exam Vitals Vital Signs Date Time Temp Pulse Resp B/P Pulse Ox O2 Delivery O2 Flow Rate FiO2 01/08/17 16:00 98.3 79 20 119/87 98 Room Air 01/08/17 10:35 98.3 86 20 117/85 98 Physical Exam Const: Alert, no acute distress Head: Atraumatic Eyes: Normal Conjunctiva, no pallor, no icterus ENT: Normal External Ears, Nose and Mouth. Tacky mucous membranes Neck: Full range of motion..~ No meningismus. No midline tenderness Resp: Clear to auscultation bilaterally, no wheezes, no rales Cardio: Regular rate and rhythm, no murmurs Abd: Soft, non tender, mildly distended, midline epigastric hernia is soft and reducible, no guarding or rebound Skin: No petechiae or rashes Back: No midline or flank tenderness Ext: No cyanosis, or edema. Ecchymosis to the medial left knee. No induration. No bony tenderness. No pain with ranging of hip. 2+ DP pulses. Neur: Awake and alert, not oriented to time. Cranial nerves II through XII intact bilaterally, strength and sensation symmetric in 4 extremities but slightly diminished, no pronator drift Psych: Normal Mood and Affect Result Diagram: 01/08/17 1235 01/08/17 1235 Results 24 hrs Laboratory Tests Test 01/08/17 12:35 01/08/17 12:50 White Blood Count 10.910^3/ul Red Blood Count 3.9410^6/ul Hemoglobin 12.8g/dl Hematocrit 37.6% Mean Corpuscular Volume 95.4fl Mean Corpuscular Hemoglobin 32.5pg Mean Corpuscular Hemoglobin Concent 34.0g/dl Red Cell Distribution Width 12.7% Platelet Count 82385^3/UL Mean Platelet Volume 11.8fl Neutrophils % 60.6% Lymphocytes % 22.1% Monocytes % 15.8% Eosinophils % 0.6% Basophils % 0.3% Nucleated Red Blood Cells % 0.0/100WBC Neutrophils # 6.610^3/ul Lymphocytes # 2.410^3/ul Monocytes # 1.710^3/ul Eosinophils # 0.110^3/ul Basophils # 0.010^3/ul Nucleated Red Blood Cells # 0.010^3/ul Prothrombin Time 13.5Sec Prothrombin Time Ratio 1.1 INR International Normalized Ratio 1.03 Sodium Level 140mmol/L Potassium Level 4.5mmol/L Chloride Level 97mmol/L Carbon Dioxide Level 28mmol/L Anion Gap 20 Blood Urea Nitrogen 25mg/dl Creatinine 1.10mg/dl Glucose Level 182mg/dl Calcium Level 9.0mg/dl Total Bilirubin 0.4mg/dl Direct Bilirubin 0.00mg/dl Indirect Bilirubin 0.4mg/dl Aspartate Amino Transf (AST/SGOT) 31IU/L Alanine Aminotransferase (ALT/SGPT) 33IU/L Alkaline Phosphatase 66IU/L Creatine Kinase 141IU/L Troponin I < 0.012ng/ml Total Protein 7.9g/dl Albumin 3.9g/dl Globulin 4.00g/dl Albumin/Globulin Ratio 0.97 Urine Color ZOILA Urine Clarity CLOUDY Urine pH 5.0 Urine Specific [place] 1.014 Urine Ketones NEGATIVEmg/dL Urine Nitrite NEGATIVEmg/dL Urine Bilirubin NEGATIVEmg/dL Urine Urobilinogen NEGATIVEmg/dL Urine Leukocyte Esterase 3+Charles/ul Urine Microscopic RBC 5/HPF Urine Microscopic WBC 145/HPF Urine Squamous Epithelial Cells FEW/HPF Urine Amorphous Crystals FEW/HPF Urine Bacteria MODERATE/HPF Urine Mucus FEW/HPF Urine Hemoglobin 1+mg/dL Urine Glucose NEGATIVEmg/dL Urine Total Protein 2+mg/dl Current Medications Medications (Trade) Dose Ordered Sig/Debbie Route PRN Reason Start Time Stop Time Status Last Admin Dose Admin Ceftriaxone Sodium (Rocephin) 50 ml @ 100 mls/hr ONCE ONCE IVPB 01/08/17 16:00 01/08/17 16:29 DC 01/08/17 16:16 Procedures/MDM EKG read by me: Time 1237, rate 66 Rhythm: Normal sinus [place]: Left axis deviation Intervals: Normal ST-T waves: no ischemic changes Ectopy: No Q-waves: No Impression: No evidence of ischemia or arrhythmia MDM: Patient is an 81-year-old female who presents with frequent falls over the last 48 hours. She is found to have a possible nondisplaced left tibial plateau fracture. She was placed in a knee immobilizer. She is neurovascularly intact and has soft compartments. There are no signs of secondary injury related to fall. Investigation as to the cause of the patient' s fall shows evidence of urinary tract infection. The patient has no signs of sepsis. She appears slightly confused, but it is unclear what her baseline is. There is no evidence of focal weakness and a head CT is unremarkable. The patient was given a dose of antibiotics in the ER, will be discharged with a prescription for Keflex. Urine culture was sent. The assisted-living was contacted by the drug abuse social worker, who discussed potential need for higher level of nursing care, and the assisted-living stated that they could arrange for this from their facility if necessary. The patient will need to be nonweightbearing on her left leg until she follows up with orthopedics, which she was advised to do within the next 2-3 days. She is advised to ambulate and/ or transfer only with assistance. Departure Diagnosis: Primary Impression: Tibial plateau fracture, left Encounter type: initial encounter Fracture type: closed Qualified Code: S82.142A - Tibial plateau fracture, left, closed, initial encounter Additional Impression: UTI (urinary tract infection) Urinary tract infection type: site unspecified Hematuria presence: without hematuria Qualified Code: N39.0 - Urinary tract infection without hematuria, site unspecified Condition: DONALD Carey MD Jan 08, 2017 12:16
[2017-01-08 12:47] LABS: ABNORMAL IP MESSAGE 1; BASOPHILS % 0.3 % (0.0-2.0); EOSINOPHILS # 0.1 10^3/ul (0.0-0.5); EOSINOPHILS % 0.6 % (0.0-7.0); HEMATOCRIT 37.6 % (37.0-47.0); HEMOGLOBIN 12.8 g/dl (12.0-16.0); LYMPHOCYTES # 2.4 10^3/ul (0.8-2.9); LYMPHOCYTES % 22.1 % (15.0-51.0); MEAN CORPUSCULAR HEMOGLOBIN 32.5 pg (29.0-33.0); MEAN CORPUSCULAR VOLUME 95.4 fl (82.0-101.0); MEAN PLATELET VOLUME 11.8 fl (7.4-10.4); MONOCYTE # 1.7 10^3/ul (0.3-0.9); NEUTROPHIL # 6.6 10^3/ul (1.6-7.5); NEUTROPHILS % 60.6 % (39.0-77.0); PLATELET COUNT 212 10^3/UL (140-415); RED BLOOD COUNT 3.94 10^6/ul (4.20-5.40); RED CELL DISTRIBUTION WIDTH 12.7 % (11.5-14.5); WHITE BLOOD COUNT 10.9 10^3/ul (4.8-10.8)
[2017-01-08 12:55] LABS: MONOCYTES % 15.8 % (0.0-11.0); POSITIVE DIFF @See below
[2017-01-08 13:04] LABS: INR 1.03; PROTIME 13.5 Sec (12.2-14.2); PT RATIO 1.1
[2017-01-08 13:07] LABS: ALANINE AMINOTRANSFERASE 33 IU/L (13-69); ALBUMIN 3.9 g/dl (3.3-4.9); ALBUMIN/GLOBULIN RATIO 0.97; ALKALINE PHOSPHATASE 66 IU/L (42-121); ANION GAP 20 (8-16); ASPARTATE AMINO TRANSFERASE 31 IU/L (15-46); BILIRUBIN,INDIRECT 0.4 mg/dl (0-1.1); BILIRUBIN,TOTAL 0.4 mg/dl (0.2-1.3); BLOOD UREA NITROGEN 25 mg/dl (7-20); CARBON DIOXIDE 28 mmol/L (21-31); CHLORIDE 97 mmol/L (97-110); CREATINE KINASE 141 IU/L (23-200); GLUCOSE 182 mg/dl (70-220); POTASSIUM 4.5 mmol/L (3.5-5.1); SODIUM 140 mmol/L (135-144); TOTAL PROTEIN 7.9 g/dl (6.1-8.1)
[2017-01-08 13:24] LABS: TROPONIN-I < 0.012 ng/ml (0.00-0.12)
--- NOTE | 2017-01-08 13:50 | RADRPT ---
PROCEDURE: CT Brain without contrast. CLINICAL INDICATION: Altered mental status TECHNIQUE: Routine CT scan of the brain was performed on a high resolution multi detector scanner without intravenous contrast. One or more of the following dose reduction techniques were used: Auto mated exposure control; Adjustment of the mA and/or kV according to patient size; Use of iterative r econstruction technique. CTDI = 45 mGy. DLP = 630 mGy-cm. COMPARISON: MRI of the brain 09/04/2014 FINDINGS: Hemorrhage: No evidence of intracranial hemorrhage. Acute ischemic changes: No evidence of acute ischemic changes. Mass effect/Midline shift: None. Parenchymal volume: Mild central parenchymal volume loss is evident. Ventricular system: Concordant with parenchymal volume. Chronic changes: There are multiple areas of low attenuation change within the supratentorial white matter most compatible with moderate chronic microvascular ischemic changes. Atherosclerotic calcifications of the cavernous portions of both internal carotid arteries are prese nt. Extracranial soft tissues: Unremarkable. Calvarium: No fractures. Paranasal sinuses: Visualized paranasal sinuses are clear. Mastoid air cells: Visualized mastoid air cells are clear. IMPRESSION: No acute intracranial abnormalities. Moderate chronic-appearing microvascular ischemic changes of the supratentorial white matter, simila r in appearance. MRI of the brain may be useful for further evaluation. RPTAT: AADD .Arya Rascon MD, Date Time Electronically viewed and signed by .Arya Rascon MD, on 01/08/2017 13:50 .B/
--- NOTE | 2017-01-08 13:54 | RADRPT ---
PROCEDURE: XR Knee 3 Views. CLINICAL INDICATION: Left knee pain and trauma. TECHNIQUE: AP, lateral and oblique view of the left knee were obtained. The images reviewed on a PACS workstation. COMPARISON: January 07, 2017 FINDINGS: Diffuse osteopenia is identified. Subtle with lucency is seen through the medial corner of the medi al tibial plateau. The remaining osseous structures appear intact. No destructive bony lesions are observed. Severe narrowing of the medial joint compartment is identified. Moderate narrowing of t he lateral and patellofemoral joint compartments is seen. Soft tissues are unremarkable. IMPRESSION: Osteopenia. Subtle lucency through the medial corner of the medial tibial plateau that is questionable for a sub tle, nondisplaced fracture. Correlation with mechanism of injury and for pain at this location is r ecommended. If further characterization is needed CT or MRI is recommended. 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 Moderate osteoarthritis in the lateral and patellofemoral joint compartments. If there is high clinical suspicion for additional traumatic injury, further evaluation with CT shou ld be considered. RPTAT: AA .Gunnar Sheets MD, Date Time Electronically viewed and signed by .Gunnar Sheets MD, on 01/08/2017 13:54 .P/
--- NOTE | 2017-01-08 13:55 | RADRPT ---
PROCEDURE: XR Chest 1 view. CLINICAL INDICATION: Shortness of breath. TECHNIQUE: AP views of the chest were obtained. COMPARISON: September 02, 2014 FINDINGS: The heart is large. Calcified atherosclerosis is noted in the aorta. The lungs are hyperexpanded. Scattered atelectasis is noted in the bilateral lower lungs. No consolidations are identified. No p neumothorax is seen. The osseous structures are osteopenic, but appear grossly intact. IMPRESSION: Cardiomegaly with calcified atherosclerosis in the aorta. Hyperexpanded lungs. Scattered atelectasis in the bilateral lower lungs. RPTAT: AA .Gunnar Sheets MD, MD Date Time Electronically viewed and signed by .Gunnar Sheets MD, on 01/08/2017 13:55 .P/
[2017-01-08 14:43] LABS: ADD UMIC YES; UR AMORPHOUS CRYSTAL FEW /HPF (NONE SEEN); UR ASCORBIC ACID NEGATIVE (NEGATIVE); UR BACTERIA MODERATE /HPF (NONE SEEN); UR BILIRUBIN (Dip) NEGATIVE (NEGATIVE); UR BLOOD (Dip) 1+ mg/dL (NEGATIVE); UR CLARITY CLOUDY (CLEAR); UR COLOR AMBER (YELLOW); UR GLUCOSE (Dip) NEGATIVE (NEGATIVE); UR KETONES (Dip) NEGATIVE (NEGATIVE); UR LEUKOCYTE ESTERASE (Dip) 3+ Leu/ul (NEGATIVE); UR MUCUS FEW /HPF (NONE SEEN); UR NITRITE (Dip) NEGATIVE (NEGATIVE); UR RBC 5 /HPF (0-5); UR SPECIFIC GRAVITY (Dip) 1.014 (1.003-1.030); UR SQUAMOUS EPITHELIAL CELL FEW /HPF (FEW); UR TOTAL PROTEIN (Dip) 2+ mg/dl (NEGATIVE); UR UROBILINOGEN (Dip) NEGATIVE (NEGATIVE)
[2017-01-08] MEDS ORDERED: CEFTRIAXONE 1 GM/50 ML (PMX) 50 ML IVPB ONE (16:00)
--- NOTE | 2017-01-08 16:34 | RADRPT ---
PROCEDURE: CT of the left knee without contrast CLINICAL INDICATION: Possible fracture TECHNIQUE: CT scan of the left knee was performed . No IV contrast was administered. Coronal and sagittal reformatted images were obtained from the axial source images. Images were reviewed on a h igh-resolution PACS workstation. The calculated radiation dose measures 441.96 mGy centimeters. The CTDI measures 18.27 mGy. One or more of the following dose reduction techniques were used: - Automated exposure control. - Adjustment of the mA and/or kV according to patient size . - Use of iterative reconstruction technique. COMPARISON: Radiographs from the same day and from 01/07/2017 FINDINGS: Osseous structures: There is a lucency through the medial margin of the lateral tibial plateau seen on the coronal serie s image 80 and also on the sagittal series image 144 suspicious for a minimally depressed lateral ti bial plateau fracture, although age indeterminate. Severe narrowing, subchondral sclerosis and yandel inal osteophyte formation is seen at the medial femorotibial compartment. There is chondrocalcinosi s in the region of the menisci. Narrowing, subchondral sclerosis and marginal osteophyte formation is also seen at the patellofemoral compartment. The osseous structures are osteoporotic, limiting osseous detail. Soft tissues: A small to moderate-sized joint effusion is present. There is moderate severe muscle atrophy at the medial aspect of the soleus muscle and distal aspect of the medial gastrocnemius, possibly from rem ote injury. Mild atrophy seen at the remainder of the musculature about the knee. Atherosclerotic vascular calcifications are present. The menisci are chronically torn. The cruciate ligaments are p oorly evaluated. IMPRESSION: 1. Osteoporosis, limiting osseous detail. 2. Minimally depressed lateral tibial plateau fracture, although age indeterminate. Confirmation m ay be obtained with MRI, as clinically warranted. 3. Background tricompartmental arthrosis dominant at the medial femorotibial compartment noting sev ere narrowing. 4. Small to moderate-sized joint effusion. 5. Atherosclerosis. RPTAT: TT .Vinnie Rico MD, MD Date Time Electronically viewed and signed by .Vinnie Rico MD, MD on 01/08/2017 16:33 .d/
[2017-01-08] MEDS ORDERED: TRAM50TA2 PO (17:02)
[2017-01-08] MEDS ORDERED: CEPH-443 PO (17:02)
[2017-01-08 19:40] VITALS: BP 132/68; PULSE 71; RESP 20; TEMP 98.1
[2017-01-08] MEDS ORDERED: IBUPROFEN 800 MG TAB PO ONE (20:00)
== END 2017-01-08 19:44 | disposition home or self-care (01) ==
LOC: E/R 10:34
DX: S82.142A Displaced bicondylar fracture of left tibia, initial encounter for closed fracture (principal); N39.0 Urinary tract infection, site not specified; E11.9 Type 2 diabetes mellitus without complications; I10 Essential (primary) hypertension; R41.82 Altered mental status, unspecified; W18.39XA Other fall on same level, initial encounter; Y92.9 Unspecified place or not applicable
CPT/HCPCS: 29505; 70450; 71010; 73562; 73700; 80053; 81001; 82550; 84484; 85025; 85610; 87086; 93005; 96374; 99285; J0696